=== PATIENT | male | born 1975 | race American Indian/Alaskan Native ===

== ENCOUNTER 2018-10-13 17:07 | Emergency (ER) | payer OTHER ==
--- NOTE | 2018-10-13 18:10 | C.PDOC ---
History Of Present Illness 43 y/o male brought to ER by ambulance complaining of left knee pain which began after he was using an ax. Patient states that he was swinging the ax when the back end of the ax hit him in the knee. Patient reports that he has severe pain. He notes that he is having difficulty weight bearing and walking and is c/o swelling above the patella. Denies having weakness and numbness. Time Seen by Provider: 10/13/18 17:23 Chief Complaint (Nursing): Lower Extremity Problem/Injury History Per: Patient History/Exam Limitations: no limitations Onset/Duration Of Symptoms: Hrs Current Symptoms Are (Timing): Still Present Severity: Moderate Past Medical History Reviewed: Historical Data, Nursing Documentation, Vital Signs Vital Signs: Last Vital Signs Temp 98.4 F 10/13/18 17:09 Pulse 91 H 10/13/18 17:09 Resp 22 10/13/18 17:09 BP 152/84 H 10/13/18 17:09 Pulse Ox 96 10/13/18 17:09 - Medical History PMH: No Chronic Diseases Surgical History: No Surg Hx Family History: States: No Known Family Hx - Social History Hx Alcohol Use: No Hx Substance Use: No Review Of Systems Except As Marked, All Systems Reviewed And Found Negative. Musculoskeletal: Positive for: Other (left knee pain) Neurological: Negative for: Weakness, Numbness Physical Exam - Physical Exam Appears: Other (moaning in pain) Skin: Normal Color, Warm, Dry, Other (no bruising to left knee) Head: Atraumatic, Normacephalic Eye(s): bilateral: Normal Inspection Nose: Normal Oral Mucosa: Moist Neck: Supple Chest: Symmetrical Extremity: Normal ROM, Tenderness (exquisite tenderness over medial aspect of left proximal tibia), No Swelling, Other (pt is pushing my hand away during examination of knee) Neurological/Psych: Oriented x3, Normal Speech ED Course And Treatment O2 Sat by Pulse Oximetry: 96 (RA) Pulse Ox Interpretation: Normal - Other Rad left knee X-Ray: Interpreted by Me Interpretation: No evidence of acute fracture, mild effusion Progress Note: Patient treated in ED with IM Toradol. Medical Decision Making Medical Decision Making: Plan: --Toradol IM --X-Ray-Left Knee Disposition Counseled Patient/Family Regarding: Studies Performed, Diagnosis, Need For Followup, Rx Given - Disposition Referrals: [facility] [Outside] Disposition: HOME/ ROUTINE Disposition Time: 19:14 Condition: STABLE Prescriptions: Naproxen [Naprosyn] 1 tab PO BID PRN #25 tab PRN Reason: Pain Instructions: Contusion (DC) Forms: [employer] [facility] (Kyrgyz) - Clinical Impression Clinical Impression: Contusion, knee - Scribe Statement The provider has reviewed the documentation as recorded by the Katja Odonnell Provider Attestation: All medical record entries made by the Katja were at my direction and personally dictated by me. I have reviewed the chart and agree that the record accurately reflects my personal performance of the history, physical exam, medical decision making, and the department course for this patient. I have also personally directed, reviewed, and agree with the discharge instructions and disposition.
[2018-10-13 19:34] VITALS: BP 144/78; PULSE 82; RESP 20; TEMP 98.2; O2SAT 97
--- NOTE | 2018-10-14 09:29 | RAD ---
Date of service: 10/13/2018 PROCEDURE: Left Knee Radiographs. HISTORY: Pain. COMPARISON: None. TECHNIQUE: 2 views obtained. FINDINGS: BONES: No fracture JOINTS: Tibial spine spurring. Medial femoral tibial and patellofemoral joint space narrowing JOINT EFFUSION: A small effusion present OTHER FINDINGS: None. IMPRESSION: No fracture or lytic lesion. Mild degenerative changes.
== END 2018-10-13 19:34 | disposition home or self-care (01) ==
LOC: C.ER 17:07
DX: S80.02XA Contusion of left knee, initial encounter (principal); W22.8XXA Striking against or struck by other objects, initial encounter
CPT/HCPCS: 73562; 96372; 99285; J1885